=== PATIENT | male | born 1955 | race Two or more races ===

== ENCOUNTER 2017-02-09 12:51 | Emergency (ER) | payer SELFPAY ==
[~2017-02-09 12:51] MED LIST: AMARYL2 MG PO; GLUCAGON1 MG/KIT IJ; GLUCOPHAGE1000 MG PO; HUMALOG100 U/ML SQ; LEVEMIR100 U/M SQ; LIPITOR; LISINOPRIL10 MG PO; LOPID600 MG PO; NORCO 5/325 TAB1 TAB PO; [UNRECOGNIZED DRUG - REMARK]
[2017-02-09] MEDS ORDERED: GLUCOPHAGE1000 M1 PO (14:53)
[2017-02-09] MEDS ORDERED: PRINIVIL20 M1 PO (14:53)
[2017-02-09 15:20] LABS: BASO % 0.7 % (0-2); BASO ABSOLUTE COUNT 0.1 tho/cmm (0.0-0.2); EOS % 3.6 % (0-7); EOSINOPHIL ABSOLUTE COUNT 0.3 tho/cmm (0.0-0.7); HCT-HEMATOCRIT 38.7 % (36.0-53.5); HGB-HEMOGLOBIN 12.9 gm/dl (13.5-17.0); LYMPH % 20.3 % (20-45); LYMPH ABSOLUTE COUNT 1.4 tho/cmm (0.8-4.5); MCH (MEAN CORPUSCULAR HGB) 26.5 pg (28.0-32.0); MCHC MEAN CORPUSCULAR HGB CONC 33.3 % (32.0-36.0); MCV (MEAN CELL VOLUME) 79.5 fl (82.0-96.0); MEAN PLATELET VOLUME 10.2 cmc (9.4-12.4); MONO % 7.4 % (0-12); MONOCYTE ABSOLUTE COUNT 0.5 tho/cmm (0.0-1.2); NEUTROPHIL ABSOLUTE COUNT 4.7 tho/cmm (1.6-8.0); NEUTROPHIL-AUTOMATED 4.7 tho/cmm (1.6-8.0); PLATELET COUNT 279 tho/cmm (150-450); RED BLOOD COUNT 4.87 mil/cmm (4.40-5.70); RED CELL DISTRIBUTION WIDTH 13.8 % (12.4-16.4); WHITE BLOOD COUNT 6.9 tho/cmm (4.0-10.0)
[2017-02-09 15:26] LABS: BLOOD UREA NITROGEN 30 mg/dl (6-24); CALCIUM 9.6 mg/dl (8.5-10.5); CARBON DIOXIDE-VENOUS 23 mmol/L (22-32); CHLORIDE 94 mmol/l (96-110); CREATININE 1.47 mg/dl (0.60-1.30); SODIUM 125 mmol/L (135-145); eGFR VALUE FOR BLACK 59 mL/Min
[2017-02-09 15:27] LABS: ANION GAP 14 mmol/L (0-20); POTASSIUM 5.6 mmol/L (3.7-5.1)
[2017-02-09 15:28] LABS: GLUCOSE 676 mg/dL (70-110)
[2017-02-09 15:46] LABS: KETONE-BETA (WHOLE BLOOD) 0.1 mmol/L (0.0-0.6)
[2017-02-09] MEDS ORDERED: LEVEMIR100 UNITS/ SC (15:50)
[2017-02-09] MEDS ORDERED: HUMALOG100 UNITS/ SC (15:50)
[2017-02-09] MEDS ORDERED: NORVASC10 M2 PO (15:52)
[2017-02-09] MEDS ORDERED: TOPROL XL25 M1 PO (15:52)
[2017-02-09] MEDS ORDERED: LIPITOR80 M1 PO (16:01)
[2017-02-09 17:18] LABS: PROCALCITONIN 0.09 ng/ml (0.05-0.09)
[2017-02-09] MEDS ORDERED: TAMIFLU75 MG/CAP NG (17:36)
[2017-02-09] MEDS ORDERED: PROVENTIL HFA6.7 G1 INH (17:36)
== END 2017-02-09 18:04 ==
LOC: EDMED 12:51
PROVIDERS: Emergency Medicine
DX: J06.9 Acute upper respiratory infection, unspecified (principal); E11.9 Type 2 diabetes mellitus without complications; I25.2 Old myocardial infarction; Z79.4 Long term (current) use of insulin; Z95.1 Presence of aortocoronary bypass graft
CPT/HCPCS: J1815; J7030